=== PATIENT | male | born 1965 | race Hispanic/Latino ===

== ENCOUNTER 2017-01-17 12:20 | Outpatient (CLI) | payer MEDICARE ==
--- NOTE | 2017-01-18 08:26 | Magnetic Resonance Report ---
MRI BRAIN WITHOUT AND WITH CONTRAST: 01/17/17 CLINICAL: Status post radiation therapy and chemotherapy for a left frontal lobe GBM COMPARISON: 11/15/16 and 09/17/16 are the most recent exams. TECHNIQUE: Axial diffusion, T1, FLAIR, gradient echo T2*, and coronal and axial T2 and sagittal T1 plus coronal and axial postcontrast T1 sequences on a 1.5 Gisselle magnet. 20.0 cc of Multihance was injected intravenously without incident for the contrast portion of the exam. Consent was obtained prior to the administration of contrast. FINDINGS: Stable left frontal lobe encephalomalacia. No mass or enhancing lesion. No restricted diffusion. No hemorrhage, edema or extra-axial collection. Normal pituitary and optic chiasm. The brainstem and cerebellum are normal. Intact vascular flow voids. The orbits and soft tissues are normal. Minimal residual left maxillary sinusitis with no air fluid level. The rest of the sinuses are clear. Normal calvarium and skull base. IMPRESSION: Negative study with stable post treatment changes in the left frontal lobe. Mild residual chronic left maxillary sinusitis.
== END 2017-01-17 12:21 | disposition home or self-care (01) ==
LOC: SPVIMAG 12:20
PROVIDERS: ATTEND Internal Medicine Hematology
DX: C71.1 Malignant neoplasm of frontal lobe (principal); G93.89 Other specified disorders of brain; J32.0 Chronic maxillary sinusitis
CPT/HCPCS: 70553; A9577

== ENCOUNTER 2017-03-07 12:12 | Outpatient (CLI) | payer MEDICARE ==
--- NOTE | 2017-03-07 15:31 | Magnetic Resonance Report ---
MRI BRAIN WITH/WITHOUT CONTRAST: Malignant neoplasm of frontal lobe. Technique: Multiple T1 and T2 weighted images were obtained in multiple planes. Axial diffusion and gradient imaging was performed. Post contrast T1 images in two planes were obtained following IV gadolinium. Findings: Compared to 01/17/17. Postsurgical encephalomalacia in the left frontal lobe is again noted and unchanged. Mild surrounding gliosis is also unchanged on the FLAIR sequence. There is no evidence for abnormal enhancement or new mass. Mild cortical volume loss and mild nonspecific chronic white matter changes are stable. No diffusion restriction, hemorrhage, mass effect or extra-axial fluid collection. Ventricular size is normal and symmetric. The basal cisterns are clear. The brainstem and cerebellar hemispheres are within normal limits. The fourth ventricle is midline. The paranasal sinuses and mastoid air cells are well aerated. Normal flow voids are identified in the appropriate vessels at the ho-chunk of Felix. No abnormal enhancement is identified following IV gadolinium. Impression: Stable postsurgical/post treatment changes in the left frontal lobe with no evidence of tumor recurrence. No change since 01/17/17.
== END 2017-03-07 12:13 | disposition home or self-care (01) ==
LOC: SPVIMAG 12:12
PROVIDERS: ATTEND Internal Medicine Hematology
DX: C71.1 Malignant neoplasm of frontal lobe (principal); R90.82 White matter disease, unspecified; G93.89 Other specified disorders of brain
CPT/HCPCS: 70553; A9577

== ENCOUNTER 2017-05-15 10:12 | Outpatient (CLI) | payer MEDICARE ==
--- NOTE | 2017-05-15 16:34 | Magnetic Resonance Report ---
MRI BRAIN WITHOUT AND WITH CONTRAST: 05/15/17 CLINICAL: Status post radiation therapy and chemotherapy for a left frontal lobe GBM. COMPARISON: 03/07/17 TECHNIQUE: Axial diffusion, T1, FLAIR, gradient echo T2*, and coronal and axial T2 and sagittal T1 plus coronal and axial postcontrast T1 sequences on a 1.5 Gisselle magnet. 20.0 cc of Multihance was injected intravenously for the contrast portion of the exam. Consent was obtained prior to the administration of contrast. FINDINGS: No mass or enhancing lesion. Stable left frontal lobe encephalomalacia with stable adjacent gliosis. No restricted diffusion. No hemorrhage, edema or extra-axial collection. Normal pituitary and optic chiasm. The brainstem and cerebellum are normal. Intact vascular flow voids. The orbits and soft tissues are normal. Stable mild mucoperiosteal thickening of the left maxillary sinus. No bone lesion. IMPRESSION: Negative study with stable post treatment changes in the left frontal lobe.
== END 2017-05-15 10:13 | disposition home or self-care (01) ==
LOC: SPVIMAG 10:12
PROVIDERS: ATTEND Internal Medicine Hematology
DX: C71.1 Malignant neoplasm of frontal lobe (principal)
CPT/HCPCS: 70553; A9577

== ENCOUNTER 2017-08-08 11:33 | Outpatient (CLI) | payer MEDICARE ==
--- NOTE | 2017-08-08 16:09 | Magnetic Resonance Report ---
MRI BRAIN WITHOUT AND WITH CONTRAST: 08/08/17 CLINICAL: Status post radiation therapy and chemotherapy for a left frontal lobe GBM. COMPARISON: 05/15/17 TECHNIQUE: Axial diffusion, T1, FLAIR, gradient echo T2*, and coronal and axial T2 and sagittal T1 plus sagittal, coronal and axial postcontrast T1 sequences on a 1.5 Gisselle magnet. 12.0 cc of Multihance was injected intravenously for the contrast portion of the exam. Consent was obtained prior to the administration of contrast. FINDINGS: Stable left frontal lobe encephalomalacia with stable adjacent gliosis. No enhancing lesion. No mass or mass effect. No restricted diffusion. No hemorrhage, edema or extra-axial collection. The ventricles and sulci are stable in size. Normal pituitary and optic chiasm. The brainstem and cerebellum are normal. Intact vascular flow voids. The orbits, sinuses and soft tissues are normal. Mucoperiosteal thickening of the left maxillary sinus has cleared. Normal calvarium and skull base status post left craniotomy. IMPRESSION: Negative study with no suspicion of recurrence.
== END 2017-08-08 11:34 | disposition home or self-care (01) ==
LOC: SPVIMAG 11:33
PROVIDERS: ATTEND Internal Medicine Hematology
DX: C71.1 Malignant neoplasm of frontal lobe (principal); G93.89 Other specified disorders of brain
CPT/HCPCS: 70553; A9577

== ENCOUNTER 2017-11-26 12:32 | Outpatient (CLI) | payer MEDICARE ==
--- NOTE | 2017-11-27 10:52 | Magnetic Resonance Report ---
MRI BRAIN WITHOUT AND WITH CONTRAST: 11/26/17 CLINICAL: Status post radiation therapy and chemotherapy for left frontal lobe GBM. COMPARISON: 08/08/17 TECHNIQUE: Axial diffusion, T1, FLAIR, gradient echo T2*, and coronal and axial T2 and sagittal T1 plus coronal and axial postcontrast T1 sequences on a 1.5 Gisselle magnet. 12.0 cc of Multihance was injected intravenously for the contrast portion of the exam. Consent was obtained prior to the administration of contrast. FINDINGS: Stable left frontal lobe encephalomalacia and stable adjacent clear cyst. No mass or enhancing lesion. No mass effect. No restricted diffusion. The ventricles and sulci are normal and stable in size. No hemorrhage, edema or extra-axial collection. Normal pituitary and optic chiasm. The brainstem and cerebellum are normal. Intact vascular flow voids. The orbits, sinuses and soft tissues are normal. Normal calvarium and skull base status post left craniotomy. IMPRESSION: Negative study.
== END 2017-11-26 12:33 | disposition home or self-care (01) ==
LOC: SPVIMAG 12:32
PROVIDERS: ATTEND Internal Medicine Hematology
DX: C71.1 Malignant neoplasm of frontal lobe (principal); G93.89 Other specified disorders of brain; Z98.890 Other specified postprocedural states
CPT/HCPCS: 70553; A9577

== ENCOUNTER 2018-02-13 12:56 | Outpatient (CLI) | payer MEDICARE ==
--- NOTE | 2018-02-13 16:35 | Magnetic Resonance Report ---
MRI BRAIN WITHOUT AND WITH CONTRAST: 02/13/18 CLINICAL: Status post radiation therapy and chemotherapy for a left frontal lobe GBM TECHNIQUE: Axial diffusion, T1, FLAIR, gradient echo T2*, and coronal and axial T2 and sagittal T1 plus coronal and axial postcontrast T1 sequences on a 1.5 Gisselle magnet. 12.0 cc of Multihance was injected intravenously for the contrast portion of the exam. Consent was obtained prior to the administration of contrast. FINDINGS: Stable left frontal lobe encephalomalacia with stable adjacent gliosis. No mass or enhancing lesion. No restricted diffusion. No hemorrhage, edema or extra-axial collection. Normal pituitary and optic chiasm. The brainstem and cerebellum are normal. Intact vascular flow voids. The orbits, sinuses and soft tissues are normal. Normal calvarium and skull base status post left craniotomy. IMPRESSION: Negative study with no suspicion of recurrence.
== END 2018-02-13 12:57 | disposition home or self-care (01) ==
LOC: SPVIMAG 12:56
PROVIDERS: ATTEND Internal Medicine Hematology
DX: C71.1 Malignant neoplasm of frontal lobe (principal); G93.89 Other specified disorders of brain; Z98.890 Other specified postprocedural states
CPT/HCPCS: 70553; A9577

== ENCOUNTER 2018-05-12 14:08 | Outpatient (CLI) | payer MEDICARE ==
--- NOTE | 2018-05-12 15:45 | Magnetic Resonance Report ---
MRI BRAIN WITHOUT AND WITH CONTRAST: 05/12/18 14:30:00 CLINICAL: Status post radiation therapy and chemotherapy for a left frontal lobe GBM TECHNIQUE: Axial diffusion, T1, FLAIR, gradient echo T2*, and coronal and axial T2 and sagittal T1 plus coronal and axial postcontrast T1 sequences on a 1.5 Gisselle magnet. 18.0 cc of Multihance was injected intravenously for the contrast portion of the exam. Consent was obtained prior to the administration of contrast. FINDINGS: Stable left frontal lobe encephalomalacia with stable adjacent gliosis. No mass or enhancing lesion. No restricted diffusion. No hemorrhage, edema or extra-axial collection. The ventricles and sulci are stable in size. Normal pituitary and optic chiasm. The brainstem and cerebellum are normal. Intact vascular flow voids. Mild left maxillary sinusitis with mild mucoperiosteal thickening of the sinus. No air-fluid level. The orbits and soft tissues are normal. Normal calvarium and skull base. IMPRESSION: Negative study with no evidence of recurrence.
== END 2018-05-12 14:09 | disposition home or self-care (01) ==
LOC: SPVIMAG 14:08
PROVIDERS: ATTEND Internal Medicine Hematology
DX: C71.1 Malignant neoplasm of frontal lobe (principal)
CPT/HCPCS: 70553; A9577

== ENCOUNTER 2018-08-07 13:34 | Outpatient (CLI) | payer MEDICARE ==
--- NOTE | 2018-08-08 08:29 | Magnetic Resonance Report ---
MRI BRAIN WITHOUT AND WITH CONTRAST: 08/07/18 CLINICAL: Status post radiation therapy and chemotherapy for a left frontal lobe GBM. COMPARISON: 02/13/18 and studies going back to 10/18/08 TECHNIQUE: Axial diffusion, T1, FLAIR, gradient echo T2*, and coronal and axial T2 and sagittal T1 plus coronal and axial postcontrast T1 sequences on a 1.5 Gisselle magnet. 20.0 cc of Multihance was injected intravenously for the contrast portion of the exam. Consent was obtained prior to the administration of contrast. FINDINGS: Stable encephalomalacia and gliosis of the left frontal lobe. No restricted diffusion. No mass or enhancing lesion. No hemorrhage, edema or extra-axial collection. Normal pituitary and optic chiasm. The brainstem and cerebellum are normal. Intact vascular flow voids. Stable mild chronic left maxillary sinusitis. The orbits and soft tissues are normal. Normal calvarium and skull base. IMPRESSION: Negative study with no evidence of tumor recurrence.
== END 2018-08-07 13:35 | disposition home or self-care (01) ==
LOC: SPVIMAG 13:34
PROVIDERS: ATTEND Internal Medicine Hematology
DX: C71.1 Malignant neoplasm of frontal lobe (principal)
CPT/HCPCS: 70553; A9577

== ENCOUNTER 2018-12-08 11:53 | Outpatient (CLI) | payer MEDICARE ==
--- NOTE | 2018-12-09 11:38 | Magnetic Resonance Report ---
MRI BRAIN WITHOUT AND WITH CONTRAST: 12/08/18 CLINICAL: Status post radiation therapy and chemotherapy for a left frontal lobe GBM. COMPARISON: 08/07/18 and studies going back to 10/18/08 TECHNIQUE: Axial diffusion, T1, FLAIR, gradient echo T2*, and coronal and axial T2 and sagittal T1 plus coronal and axial postcontrast T1 sequences on a 1.5 Gisselle magnet. 20.0 cc of Multihance was injected intravenously for the contrast portion of the exam. Consent was obtained prior to the administration of contrast. FINDINGS: Stable left frontal lobe encephalomalacia and gliosis. No mass or enhancing lesion. No restricted diffusion. No hemorrhage, edema or extra-axial collection. Normal pituitary and optic chiasm. The brainstem and cerebellum are normal. Intact vascular flow voids. Left maxillary sinusitis has resolved and the sinuses are clear. The orbits and soft tissues are normal. Normal calvarium and skull base. IMPRESSION: Negative study with no evidence of tumor recurrence.
== END 2018-12-08 11:54 | disposition home or self-care (01) ==
LOC: SPVIMAG 11:53
PROVIDERS: ATTEND Internal Medicine Hematology
DX: C71.1 Malignant neoplasm of frontal lobe (principal)
CPT/HCPCS: 70553; A9577

== ENCOUNTER 2019-03-27 12:56 | Outpatient (CLI) | payer MEDICARE ==
--- NOTE | 2019-03-30 08:19 | Magnetic Resonance Report ---
MRI BRAIN WITHOUT AND WITH CONTRAST: 03/27/19 CLINICAL: Status post radiation therapy and chemotherapy for a left frontal lobe GBM. New alteration of speech. COMPARISON: 12/08/18, 08/07/18 and examinations going back to 10/18/08. TECHNIQUE: Axial diffusion, T1, FLAIR, gradient echo T2*, and coronal and axial T2 and sagittal T1 plus coronal and axial postcontrast T1 sequences on a 1.5 Gisselle magnet. 19.0 cc of Multihance was injected intravenously for the contrast portion of the exam. Consent was obtained prior to the administration of contrast. FINDINGS: Status post left frontal lobe craniotomy and stable left frontal lobe postsurgical encephalomalacia. Stable left frontal lobe gliosis. No restricted diffusion. No mass or enhancing lesion. No hemorrhage, edema or extra-axial collection. No chronic microbleeds on the gradient echo sequence. Normal pituitary and optic chiasm. The brainstem and cerebellum are normal. Intact vascular flow voids. The orbits, sinuses and soft tissues are normal. Normal calvarium and skull base. IMPRESSION: No acute change and no evidence of disease recurrence or metastasis. No evidence of infarct or hemorrhage.
== END 2019-03-27 12:57 | disposition home or self-care (01) ==
LOC: SPVIMAG 12:56
PROVIDERS: ATTEND Internal Medicine Hematology
DX: C71.1 Malignant neoplasm of frontal lobe (principal)
CPT/HCPCS: 70553; A9577

== ENCOUNTER 2019-07-22 15:16 | Outpatient (CLI) | payer MEDICARE ==
--- NOTE | 2019-07-22 18:31 | Magnetic Resonance Report ---
MRI BRAIN 07/22/2019 INDICATION / CLINICAL INFORMATION: GLIOBLASTOMA. TECHNIQUE: Multiplanar, multisequence MR images of the brain were obtained. COMPARISON: 03/27/2019 FINDINGS: BRAIN / INTRACRANIAL CONTENTS: Unenhanced and enhanced MR images of the brain were obtained and saundra red to a prior exam from 03/27/2019. Again seen are postoperative changes in the left frontal lobe, associated with a postoperative site a nd surrounding white matter signal change. The overall pattern of surrounding white matter signal joshua nge is stable when compared to the prior exam. On the postcontrast images, too small focal areas of periventricular enhancement are present associa dean with frontal horns bilaterally, measuring approximately 3-4 mm. This has not changed when compare d to the prior exam. This finding is best seen on coronal postcontrast image #26 of the current study and coronal postcontrast image 25 of the prior exam. No other areas of abnormal contrast enhancement are present. I would consider this finding to be of u ncertain significance. There is no evidence of acute ischemic injury or hemorrhage. There are no abnormal extra-axial fluid collections. EXTRACRANIAL: Unremarkable CRANIOCERVICAL JUNCTION: No significant abnormality. VASCULAR FLOW-VOIDS: No significant abnormality. IMPRESSION: 1. Stable postoperative changes. 2. Stable small foci of enhancement in the frontal periventricular region bilaterally as discussed ab pepper. Signer Name: Daniel Camarena MD Signed: 07/22/2019 6:27 PM Workstation Name: [id number]
== END 2019-07-22 15:17 | disposition home or self-care (01) ==
LOC: SPVIMAG 15:16
PROVIDERS: ATTEND Nurse Practitioner Adult Health
DX: C71.8 Malignant neoplasm of overlapping sites of brain (principal)
CPT/HCPCS: 70553; A9577

== ENCOUNTER 2019-12-07 10:08 | Outpatient (CLI) | payer MEDICARE ==
--- NOTE | 2019-12-07 13:07 | Magnetic Resonance Report ---
MRI BRAIN 12/07/2019 INDICATION / CLINICAL INFORMATION: GLIOBLASTOMA. TECHNIQUE: Multiplanar, multisequence MR images of the brain were obtained. COMPARISON: 07/22/2019 FINDINGS: BRAIN / INTRACRANIAL CONTENTS: Unenhanced and enhanced MR images of the brain were obtained and saundra red to the prior exam from 07/22/2019. There has been no change. Again seen are postoperative changes in the left frontal region, with evidence of prior laminectomy a nd left frontal lobe resection. The overall appearance of the resection bed has not changed. On the postcontrast images, too small foci of enhancement are present associated with the periventric ular white matter of the frontal horns bilaterally, unchanged when compared to the prior exam. No new areas of abnormal signal or enhancement are present. Ventricles and sulci are unchanged in siz e and within normal limits. There is no evidence of hemorrhage. There are no abnormal extra-axial fluid collections. EXTRACRANIAL: Unremarkable CRANIOCERVICAL JUNCTION: No significant abnormality. VASCULAR FLOW-VOIDS: No significant abnormality. IMPRESSION: Left frontal postoperative changes. No change when compared to 07/22/2019. Signer Name: Daniel Camarena MD Signed: 12/07/2019 1:03 PM Workstation Name: [id number]
== END 2019-12-07 10:09 | disposition home or self-care (01) ==
LOC: SPVIMAG 10:08
DX: C71.9 Malignant neoplasm of brain, unspecified (principal); Z98.890 Other specified postprocedural states
CPT/HCPCS: 70553; A9577

== ENCOUNTER 2019-12-20 16:10 | Emergency (ER) | payer MEDICARE ==
--- NOTE | 2019-12-20 16:44 | Emergency Department Report ---
ED Neuro Deficit HPI - General Chief Complaint: Weakness Stated Complaint: RT SIDED WEAKNESS Time Seen by Provider: 12/20/19 16:32 Source: patient Mode of arrival: Ambulatory Limitations: Other - History of Present Illness Initial Comments: Patient is 54 years old male with history of glioblastoma multiforme, status post resection in 2007 and recurrence in 2013. Patient followed by [facility]. His local oncologist is Dr. Chen at [facility]. Patient brought to the emergency room by his family for evaluation of right upper and lower extremity weakness and imbalance for the last 4 days. Patient denied any headache, loss of consciousness or speech impairment. -: Sudden, days(s) Location: right arm, right leg Presenting Symptoms: Present: Weak/Paralyzed One Side History of same: Yes Place: home Severity: moderate Quality: weak Context: sudden onset Associated Symptoms: denies other symptoms - Related Data Allergies/Adverse Reactions: Allergies Allergy/AdvReac Type Severity Reaction Status Date / Time acetaminophen [From Percocet] Allergy Dizziness Verified 12/20/19 16:40 oxycodone [From Percocet] Allergy Dizziness Verified 12/20/19 16:40 ED Review of Systems ROS: Stated complaint: RT SIDED WEAKNESS Other details as noted in HPI Comment: All other systems reviewed and negative Constitutional: denies: chills, fever Respiratory: denies: cough, shortness of breath, SOB with exertion Cardiovascular: denies: chest pain Gastrointestinal: denies: abdominal pain, nausea Musculoskeletal: denies: back pain Neurological: weakness. denies: headache ED Past Medical Hx - Past Medical History Previous Medical History?: Yes Hx Hypertension: Yes Additional medical history: GBM 2007 WITH REMOVAL, RECURRENT GBM 2013, CHEMO/RAD, - Surgical History Past Surgical History?: Yes Additional Surgical History: CRAINIOTOMY, - Social History Smoking Status: Never Smoker Substance Use Type: None ED Neuro Physical Exam - General Limitations: Other General appearance: alert, in no apparent distress Suspected Stroke: Yes - Head Head exam: Present: atraumatic, normocephalic, normal inspection - Eye Eye exam: Present: normal appearance - ENT ENT exam: Present: normal exam, normal orophraynx, mucous membranes moist - Neck Neck exam: Present: normal inspection, full ROM. Absent: tenderness, meningismus - Respiratory Respiratory exam: Present: normal lung sounds bilaterally - Cardiovascular Cardiovascular Exam: Present: regular rate, normal rhythm, normal heart sounds - GI/Abdominal GI/Abdominal exam: Present: soft, normal bowel sounds. Absent: distended, tenderness, guarding, rebound, rigid, organomegaly, mass, bruit, pulsatile mass, hernia - Back Exam Back exam: Present: normal inspection, full ROM. Absent: CVA tenderness (R), CVA tenderness (L), muscle spasm, paraspinal tenderness, vertebral tenderness - Neurological Exam Neurological exam: Present: alert, oriented X3, CN II-XII intact, reflexes normal - NIHSS Assessment Interval: Baseline 1a. Level of Consciousness: alert/keenly responsive 1b. LOC Questions: answers both correctly 1c. LOC Commands: performs tasks correctly 2. Best Gaze: normal 3. Visual: no visual loss 4. Facial Palsy: normal symmetrical movement 5b. Motor Arm Right: no drift 5a. Motor Arm Left: no drift 6a. Motor Leg Left: no drift 6b. Motor Leg Right: no drift 7. Limb Ataxia: absent 8. Sensory: normal 9. Best Language: no aphasia 10. Dysarthria: normal 11. Extinction/Inattention: no abnormality Total Score: 0 Stroke Severity: No Stroke Symptoms - Psychiatric Psychiatric exam: Present: normal mood - Skin Skin exam: Present: warm, intact, normal color ED Course Vital Signs 12/20/19 12/20/19 16:23 16:42 Temperature 97.9 F Pulse Rate 101 H Respiratory 20 18 Rate Blood Pressure 147/92 Blood Pressure 147/92 [Right] O2 Sat by Pulse 97 Oximetry - Lab Data Result diagrams: 12/20/19 16:44 12/20/19 16:44 Lab Results 12/20/19 12/20/19 12/20/19 Range/Units 16:31 16:44 16:44 WBC 8.9 (4.5-11.0) K/mm3 RBC 5.59 H (3.65-5.03) M/mm3 Hgb 17.2 H (11.8-15.2) gm/dl Hct 49.3 H (35.5-45.6) % MCV 88 (84-94) fl MCH 31 (28-32) pg MCHC 35 H (32-34) % RDW 13.4 (13.2-15.2) % Plt Count 193 (140-440) K/mm3 Lymph % (Auto) 36.9 H (13.4-35.0) % [place] % (Auto) 8.5 H (0.0-7.3) % Eos % (Auto) 2.6 (0.0-4.3) % Baso % (Auto) 0.5 (0.0-1.8) % Lymph # 3.0 (1.2-5.4) K/mm3 [place] # 0.7 (0.0-0.8) K/mm3 Eos # 0.2 (0.0-0.4) K/mm3 Baso # 0.0 (0.0-0.1) K/mm3 Seg Neutrophils % 51.5 (40.0-70.0) % Seg Neutrophils # 4.1 (1.8-7.7) K/mm3 PT 13.0 (12.2-14.9) Sec. INR 0.97 (0.87-1.13) APTT 28.5 (24.2-36.6) Sec. Thrombin Time 16.6 (15.1-19.6) Sec. Sodium (137-145) mmol/L Potassium (3.6-5.0) mmol/L Chloride (98-107) mmol/L Carbon Dioxide (22-30) mmol/L Anion Gap mmol/L BUN (9-20) mg/dL Creatinine (0.8-1.5) mg/dL Estimated GFR ml/min BUN/Creatinine Ratio % Glucose (75-100) mg/dL POC Glucose 103 (70-105) Calcium (8.4-10.2) mg/dL Total Creatine Kinase (55-170) units/L CK-MB (CK-2) (0.0-4.0) ng/mL CK-MB (CK-2) Rel Index (0-4) Troponin T (0.00-0.029) ng/mL 12/20/19 Range/Units 16:44 WBC (4.5-11.0) K/mm3 RBC (3.65-5.03) M/mm3 Hgb (11.8-15.2) gm/dl Hct (35.5-45.6) % MCV (84-94) fl MCH (28-32) pg MCHC (32-34) % RDW (13.2-15.2) % Plt Count (140-440) K/mm3 Lymph % (Auto) (13.4-35.0) % [place] % (Auto) (0.0-7.3) % Eos % (Auto) (0.0-4.3) % Baso % (Auto) (0.0-1.8) % Lymph # (1.2-5.4) K/mm3 [place] # (0.0-0.8) K/mm3 Eos # (0.0-0.4) K/mm3 Baso # (0.0-0.1) K/mm3 Seg Neutrophils % (40.0-70.0) % Seg Neutrophils # (1.8-7.7) K/mm3 PT (12.2-14.9) Sec. INR (0.87-1.13) APTT (24.2-36.6) Sec. Thrombin Time (15.1-19.6) Sec. Sodium 138 (137-145) mmol/L Potassium 3.7 (3.6-5.0) mmol/L Chloride 99.6 (98-107) mmol/L Carbon Dioxide 23 (22-30) mmol/L Anion Gap 19 mmol/L BUN 11 (9-20) mg/dL Creatinine 0.9 (0.8-1.5) mg/dL Estimated GFR > 60 ml/min BUN/Creatinine Ratio 12 % Glucose 118 H (75-100) mg/dL POC Glucose (70-105) Calcium 9.7 (8.4-10.2) mg/dL Total Creatine Kinase 73 (55-170) units/L CK-MB (CK-2) < 1.0 (0.0-4.0) ng/mL CK-MB (CK-2) Rel Index 1.3 (0-4) Troponin T < 0.010 (0.00-0.029) ng/mL - EKG Data -: EKG Interpreted by Ma EKG shows normal: sinus rhythm Rate: normal Interpretation: no acute changes - Radiology Data Radiology results: report reviewed - Medical Decision Making Patient is 54 years old male with history of glioblastoma multiforme, status pos t resection in 2007 and recurrence in 2013. Patient followed by [facility]. His local oncologist is Dr. Chen at [facility]. Patient brought to the emergency room by his family for evaluation of right upper and lower extremity weakness and imbalance for the last 4 days. Patient denied any headache, loss of consciousness or speech impairment. Patient examined by Dr. Portillo, stroke tele-neurology. Patient is not a TPA candidate secondary to time of onset and improvement of the symptoms. I discussed the patient with Dr. Chen from [facility]. Dr. Chen advised to transfer the patient either to [facility] or [facility] for neurosurgery consult. I discussed the patient with Dr. Euceda's, neurosurgeon at [facility] he accepted the patient to be transferred for further evaluation. I discussed the patient with Dr. Franklin neurologist at [facility] he accepted the patient to be transferred. Patient accepted to be transferred by [facility] Dr. Hylton. Patient transferred in a stable condition. Critical Care Time: Yes Critical care time in (mins) excluding proc time.: 45 Critical care attestation.: If time is entered above; I have spent that time in minutes in the direct care of this critically ill patient, excluding procedure time. ED Disposition Clinical Impression: Imbalance, Stroke, Glioblastoma multiforme Disposition: DC/TX-70 ANOTHER TYPE [facility]ARE Is pt being admited?: No Condition: Stable
--- NOTE | 2019-12-20 16:53 | Emergency Department Report ---
ED Neuro Deficit HPI - General Chief Complaint: Weakness Stated Complaint: RT SIDED WEAKNESS Time Seen by Provider: 12/20/19 16:32 Source: patient Mode of arrival: Ambulatory Limitations: Other - History of Present Illness Initial Comments: [facility] Date of Service: 12/20/2019 16:19:07 Impression: RO Acute Ischemic Stroke Comments: 4 days of worsening right sided weakness and imbalance in the setting of previous L frontal GBM - DDx tumor recurrence vs acute stroke vs seizure. Recommend Mechanism of Stroke: Possible Thromboembolic Possible Cardioembolic Metrics: Last Known Well: 12/16/2019 12:00:00 [facility] Notification Time: 12/20/2019 16:18:39 Arrival Time: 12/20/2019 16:10:00 Stamp Time: 12/20/2019 16:19:07 Time First Login Attempt: 12/20/2019 16:27:04 Video Start Time: 12/20/2019 16:27:04 Symptoms: imbalance NIHSS Start Assessment Time: 12/20/2019 16:33:40 Patient is not a candidate for tPA. Patient was not deemed candidate for tPA thrombolytics because of Last Well Known Above 4.5 Hours. Video End Time: 12/20/2019 16:37:40 CT head was reviewed. Clinical Presentation is not Suggestive of Large Vessel Occlusive Disease, Patient is not a Candidate for Thrombectomy ED Physician notified of diagnostic impression and management plan on 12/20/2019 16:37:40 Our recommendations are outlined below. Recommendations: Activate Stroke Protocol Admission/Order Set Stroke/Telemetry Floor Neuro Checks Bedside Swallow Eval DVT Prophylaxis IV Fluids, Normal Saline Head of Bed Below 30 Degrees Euglycemia and Avoid Hyperthermia (PRN Acetaminophen) start ASA if CT head is neg for hemorrhage. Recommended Scan: MRI Head with and Without Contrast Lipid Panel to Be Obtained, if Not Done in the Last Three Months Therapies: Physical Therapy, Occupational Therapy, Speech Therapy Assessment When Applicable Dysphaghia Screen: Swallow Evaluation, Bedside NPO Until Swallow Evaluation DVT prophylaxis: Lovenox or LMW Heparin Disposition: Follow up with Teleneurology Follow up Sign Out: Discussed with Emergency Department Provider History of Present Illness: Patient is a 54 year old Male. Patient was brought by private transportation with symptoms of imbalance 54 yo man LSN 4 days ago presents with imbalance. He also noted the right foot is weaker than the left. He seems to be drifting toward the right when walking. It has been worsening for the past 4 days. He takes no blood thinners. He has a hx of GBM s/p craniectomy in 2007. He had a recurrence in 2013. NO LOC/convulsion. He takes keppra and lisinopril, which he has not been taking for several months. CT head was reviewed. Examination: 1A: Level of Consciousness - Alert; keenly responsive + 0 1B: Ask Month and Age - Both Questions Right + 0 1C: Blink Eyes & Squeeze Hands - Performs Both Tasks + 0 2: Test Horizontal Extraocular Movements - Normal + 0 3: Test Visual Celaya - No Visual Loss + 0 4: Test Facial Palsy (Use Grimace if Obtunded) - Normal symmetry + 0 5A: Test Left Arm Motor Drift - No Drift for 10 Seconds + 0 5B: Test Right Arm Motor Drift - No Drift for 10 Seconds + 0 6A: Test Left Leg Motor Drift - No Drift for 5 Seconds + 0 6B: Test Right Leg Motor Drift - No Drift for 5 Seconds + 0 7: Test Limb Ataxia (FNF/Heel-Magana) - No Ataxia + 0 8: Test Sensation - Normal; No sensory loss + 0 9: Test Language/Aphasia - Normal; No aphasia + 0 10: Test Dysarthria - Normal + 0 11: Test Extinction/Inattention - No abnormality + 0 NIHSS Score: 0 Patient was informed the Neurology Consult would happen via TeleHealth consult by way of interactive audio and video telecommunications and consented to receiving care in this manner. Due to the immediate potential for life-threatening deterioration due to underlying acute neurologic illness, I spent 35 minutes providing critical care. This time includes time for face to face visit via telemedicine, review of medical records, imaging studies and discussion of findings with providers, the patient and/or family. Dr Jaime Portillo [facility] Case [id number] Location: right arm, right leg History of same: Yes Place: home Severity: moderate Quality: weak - Related Data Allergies/Adverse Reactions: Allergies Allergy/AdvReac Type Severity Reaction Status Date / Time acetaminophen [From Percocet] Allergy Dizziness Verified 12/20/19 16:40 oxycodone [From Percocet] Allergy Dizziness Verified 12/20/19 16:40 ED Review of Systems ROS: Stated complaint: RT SIDED WEAKNESS Other details as noted in HPI Constitutional: denies: chills, fever Respiratory: denies: cough, shortness of breath, SOB with exertion Cardiovascular: denies: chest pain Gastrointestinal: denies: abdominal pain, nausea Musculoskeletal: denies: back pain Neurological: weakness. denies: headache ED Past Medical Hx - Past Medical History Previous Medical History?: Yes Hx Hypertension: Yes Additional medical history: GBM 2007 WITH REMOVAL, RECURRENT GBM 2013, CHEMO/RAD, - Surgical History Past Surgical History?: Yes Additional Surgical History: CRAINIOTOMY, - Social History Smoking Status: Never Smoker Substance Use Type: None ED Neuro Physical Exam - General Limitations: Other Suspected Stroke: Yes - NIHSS Assessment Interval: Baseline 1a. Level of Consciousness: alert/keenly responsive 1b. LOC Questions: answers both correctly 1c. LOC Commands: performs tasks correctly 2. Best Gaze: normal 3. Visual: no visual loss 4. Facial Palsy: normal symmetrical movement 5b. Motor Arm Right: no drift 5a. Motor Arm Left: no drift 6a. Motor Leg Left: no drift 6b. Motor Leg Right: no drift 7. Limb Ataxia: absent 8. Sensory: normal 9. Best Language: no aphasia 10. Dysarthria: normal 11. Extinction/Inattention: no abnormality Total Score: 0 Stroke Severity: No Stroke Symptoms ED Course Vital Signs 12/20/19 12/20/19 16:23 16:42 Temperature 97.9 F Pulse Rate 101 H Respiratory 20 18 Rate Blood Pressure 147/92 Blood Pressure 147/92 [Right] O2 Sat by Pulse 97 Oximetry - Lab Data Lab Results 12/20/19 Range/Units 16:31 POC Glucose 103 (70-105) Critical care attestation.: If time is entered above; I have spent that time in minutes in the direct care of this critically ill patient, excluding procedure time. ED Disposition Clinical Impression: Imbalance Disposition: [id number] OP ADMIT IP TO THIS HOSP Is pt being admited?: Yes Condition: Stable
[2019-12-20 16:57] LABS: Hematocrit 49.3 % (35.5-45.6); Hemoglobin 17.2 gm/dl (11.8-15.2); Mean Corpuscular HGB Conc 35 % (32-34); Mean Corpuscular Volume 88 fl (84-94); Platelet Count 193 K/mm3 (140-440); Red Blood Count 5.59 M/mm3 (3.65-5.03); Red Cell Distribution Width 13.4 % (13.2-15.2)
[2019-12-20 17:07] LABS: INR 0.97 (0.87-1.13)
[2019-12-20 17:09] LABS: Partial Thromboplastin Time 28.5 Sec. (24.2-36.6); Thrombin Time 16.6 Sec. (15.1-19.6)
[2019-12-20 17:13] LABS: Basophils % (Auto) 0.5 % (0.0-1.8); Eosinophils # (Auto) 0.2 K/mm3 (0.0-0.4); Eosinophils % (Auto) 2.6 % (0.0-4.3); Lymphocytes % (Auto) 36.9 % (13.4-35.0); Monocytes # (Auto) 0.7 K/mm3 (0.0-0.8); Monocytes % (Auto) 8.5 % (0.0-7.3)
[2019-12-20 17:21] LABS: BUN/Creatinine Ratio 12; Blood Urea Nitrogen 11 mg/dL (9-20); Calcium 9.7 mg/dL (8.4-10.2); Hemolysis Index 11
[2019-12-20 17:22] LABS: Creatine Kinase MB < 1.0 ng/mL (0.0-4.0)
--- NOTE | 2019-12-20 17:22 | Cat Scan Report ---
CT HEAD WITHOUT CONTRAST Note: The process safety engineering technologist did not call to notify me that this patient was a code stroke patient. This examination was marked as a routine stat ED examination. I do not know the reason that the CT techno logist did not follow the code stroke protocol. INDICATION / CLINICAL INFORMATION: Stroke symptoms. Code stroke TECHNIQUE: All CT scans at this location are performed using CT dose reduction for ALARA by means of automated e xposure control. COMPARISON: None available. FINDINGS: Postsurgical changes: Patient is status post left frontoparietal craniotomy for resection of brain ne oplasm (glioblastoma by history provided). Encephalomalacia is present in the postoperative bed. Ther e is no associated mass effect. HEMORRHAGE: No evidence of intracranial hemorrhage or extra-axial fluid collection. EXTRA-AXIAL SPACES: Cortical sulci, sylvian fissures and basilar cisterns have an otherwise unremarka ble appearance. VENTRICULAR SYSTEM: Third and lateral ventricles are at the upper limit of normal for size unchanged from prior study. 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 In addition white matter lucency is seen adj acent to this postoperative finding. This may reflect post radiation therapy change. Similar findings were present on previous study. MIDLINE SHIFT OR HERNIATION: There is no mass effect. CEREBELLUM / BRAINSTEM: Brainstem and cerebellum have an unremarkable appearance. INTRACRANIAL VESSELS:No abnormalities are identified on this noncontrast head CT. ORBITS: visualized portions of the orbits have an unremarkable appearance. SOFT TISSUES of HEAD: No significant abnormality. CALVARIUM: Status post left frontoparietal craniotomy. The calvarium has an otherwise unremarkable ap pearance. PARANASAL SINUSES / MASTOID AIR CELLS: Paranasal sinuses are free from inflammatory mucosal disease. Mastoid air cells are normally pneumatized. IMPRESSION: 1. Postoperative changes status post surgery for resection of glioblastoma. These findings are stable compared to recent MRI brain 12/07/2019. 2. No acute intracranial abnormality. No significant interval change. Code stroke: I called report of this study to Dr. Chaparro of the [facility] emergency depart ment at about 1610 Central standard time. Signer Name: David Lawrence MD Signed: 12/20/2019 5:17 PM Workstation Name: [email or web address]
[2019-12-20] MEDS ORDERED: levETIRAcetam 1000 MG/NS 0.75% 1,000 MG/100 ML BAG IV ONE (18:16)
[2019-12-20 20:29] VITALS: BP 117/79
== END 2019-12-20 21:20 | disposition other institution (70) ==
LOC: ED 16:10
DX: I63.9 Cerebral infarction, unspecified (principal); C71.9 Malignant neoplasm of brain, unspecified; R26.89 Other abnormalities of gait and mobility; I10 Essential (primary) hypertension; Z98.890 Other specified postprocedural states; Z88.6 Allergy status to analgesic agent
CPT/HCPCS: 36415; 70450; 80048; 82550; 82553; 82962; 84484; 85025; 85610; 85670; 85730; 93005; 93010; 96365; 99291; J1953

== ENCOUNTER 2020-01-20 10:34 | Outpatient (CLI) | payer MEDICARE ==
--- NOTE | 2020-01-20 14:16 | Magnetic Resonance Report ---
MRI BRAIN 01/20/2020 INDICATION / CLINICAL INFORMATION: GLIOBLASTOMA C71.9. TECHNIQUE: Multiplanar, multisequence MR images of the brain were obtained. COMPARISON: 12/07/2019 FINDINGS: BRAIN / INTRACRANIAL CONTENTS: Unenhanced and enhanced MR images of the brain were obtained and saundra red to the prior exam from 12/07/2019. Again seen is the left frontal postoperative site. On the postcontrast images, too small foci of enha ncement are noted associated with the periventricular white matter of the frontal horns of lateral ve ntricles bilaterally. The area of enhancement on the left questionably larger than on the prior exam, as seen on coronal images. This area of enhancement measures 3.4 mm on the prior exam, and approxima tely 4.5 mm on the current exam. It is unclear whether this is a result of slightly different slice p ositioning or a true subtle increase in size of an area of abnormal enhancement. Continued close imag ing follow-up is recommended. On the diffusion-weighted images, there is a 1 cm area of increased diffusion weighted signal in the left harmon radiata adjacent to the lateral ventricle. This was not present on the prior exam. There is no definite decreased ADC signal at this site, and no definite contrast enhancement. The appearanc e is most consistent with a small focal area of recent subcortical ischemic injury. There may be an a dditional punctate focus of subacute ischemic injury in the left peritrigonal white matter. There is no evidence of hemorrhage. There are no abnormal extra-axial fluid collections. EXTRACRANIAL: Unremarkable CRANIOCERVICAL JUNCTION: No significant abnormality. VASCULAR FLOW-VOIDS: No significant abnormality. IMPRESSION: 1. Postoperative changes in the left frontal lobe. 2. Question of subtle increase in previously seen area of enhancement along the left frontal horn as described above. 3. Findings consistent with subacute subcortical ischemic changes in the left side. Signer Name: Daniel Camarena MD Signed: 01/20/2020 2:11 PM Workstation Name: [id number]
== END 2020-01-20 10:35 | disposition home or self-care (01) ==
LOC: SPVIMAG 10:34
DX: C71.9 Malignant neoplasm of brain, unspecified (principal)
CPT/HCPCS: 70553; A9577